=== PATIENT | male | born 1965 | race African-American/Black ===

== ENCOUNTER 2023-03-24 15:12 | Inpatient (IN) | payer MEDICARE, MEDICAID ==
[~2023-03-24] VITALS: Ht 171.4 cm; Wt 65.5 kg
[~2023-03-24 15:12] MED LIST: CARV6.253 PO; LISI10TA27 PO; METO-292 PO; NITR0.4T SL; rocuronium 10mg/ml inj IV ONE
[2023-03-24 15:32] LABS: BASOPHILS % (AUTO) 0.7 % (0-1); EOSINOPHILS % (AUTO) 0.3 % (0-6); HEMATOCRIT 32.5 % (42.0-52.0); HEMOGLOBIN 10.3 g/dl (14.0-17.9); LYMPHOCYTES # (AUTO) 0.8 X10'3 (1.1-4.8); LYMPHOCYTES % (AUTO) 14.1 % (21-51); MEAN CORPUSCULAR HEMOGLOBIN 25.8 PG (27.0-31.0); MEAN CORPUSCULAR HGB CONC 31.6 g/dL (33.0-36.5); MEAN CORPUSCULAR VOLUME 81.8 FL (78-98); MEAN PLATELET VOLUME 8.5 FL (7.4-10.4); MONOCYTES # (AUTO) 0.4 X10'3 (0-0.9); MONOCYTES % (AUTO) 6.6 % (2-12); NEUTROPHILS # (AUTO) 4.5 X10'3 (1.8-7.7); NEUTROPHILS % (AUTO) 78.3 % (42-75); PLATELET COUNT 232 X10'3 (140-440); RED BLOOD COUNT 3.98 X10'6 (4.70-6.10); RED CELL DISTRIBUTION WIDTH 25.7 % (11.5-14.5); WHITE BLOOD COUNT 5.8 X10'3 (4.5-11.0)
[2023-03-24 15:48] LABS: ALANINE AMINOTRANSFERASE 40 U/L (12-78); ALBUMIN 2.7 G/DL (3.4-5.0); ALBUMIN/GLOBULIN RATIO 0.6 (1.1-1.5); ALKALINE PHOSPHATASE 84 IU/L (46-116); ANION GAP 10 (8-16); ASPARTATE AMINO TRANSFERASE 27 U/L (10-37); BILIRUBIN,TOTAL 1.7 MG/DL (0.1-1.0); BLOOD UREA NITROGEN 46 MG/DL (7-18); BUN/CREATININE RATIO 19.5 (10.0-20.0); CALCIUM 9.2 MG/DL (8.5-10.1); CHLORIDE 96 MMOL/L (99-107); CREATININE 2.36 MG/DL (0.60-1.10); GLUCOSE 353 MG/DL (70-104); POTASSIUM 5.7 MMOL/L (3.5-5.1); SODIUM 128 MMOL/L (135-145); TOTAL PROTEIN 7.6 G/DL (6.4-8.2); eCRCL 35 ML/MIN; eGFR 35 ML/MIN
[2023-03-24 15:55] LABS: PRO BRAIN NATRIURETIC PEPTIDE 21013 PG/ML (0-125)
[2023-03-24 16:23] LABS: ANISOCYTOSIS 3+; PLATELET ESTIMATE NORMAL
[2023-03-24 16:24] LABS: BURR CELLS FEW; HYPOCHROMASIA 1+; SCHISTOCYTES FEW
[2023-03-24 16:25] LABS: POLYCHROMASIA FEW
[2023-03-24] MEDS ORDERED: CefTRIAXone 2gm/D5W 50ml BAG 50 ML IV ONE (17:45)
[2023-03-24] MEDS ORDERED: sodium polystyrene sulfonate 15gm/60ml oral suspension PO ONE (18:10)
[2023-03-24] MEDS: furosemide 10 MG/1 ML 10ml inj IV ONE ×2 (18:26→18:47)
[2023-03-24] MEDS ORDERED: magnesium hydroxide 30ml (MOM) UD suspension PO PRN (19:05)
[2023-03-24] MEDS ORDERED: magnesium Cl slow-release 64mg tablet PO PRN (19:05)
[2023-03-24] MEDS ORDERED: mag hydrox/Alum hydrox/simeth 30ml oral suspension PO PRN (19:05)
[2023-03-24] MEDS ORDERED: PERFLUTREN PROTEIN-A MICROSPHR (Optison) 0.22 MG/ML 3ML VIAL IV ONE (19:05)
[2023-03-24] MEDS ORDERED: magnesium 4gm in 100ml NS 100 ML IV PRN (19:05)
[2023-03-24] MEDS ORDERED: magnesium 2GM in 50ml NS 50 ML IV PRN (19:05)
[2023-03-24] MEDS ORDERED: dextrose 50%-water 50ml dispensing syringe IV PRN ×2 (19:15)
[2023-03-24] MEDS ORDERED: DEXTROSE 15 GM of carb/4 tabs (each vial/BOTTLE has 4 tablets) PO PRN ×2 (19:15)
[2023-03-24] MEDS ORDERED: glucagon, human recombinant 1mg kit SUBCUT PRN (19:15)
[2023-03-24] MEDS ORDERED: MESSAGE TO PHARMACY PO ONE (19:15)
[2023-03-24] MEDS ORDERED: colchicine 0.6mg tablet PO ONE (19:15)
[2023-03-24 19:30] LABS: PHOSPHORUS 4.7 MG/DL (2.3-4.5)
[2023-03-24 19:32] LABS: HEMOGLOBIN A1C 8.6 % (4.5-6.2)
[2023-03-24] MEDS: furosemide 20 MG/2 ML vial IV SCH (20:00)
[2023-03-24] MEDS: K and/or MAG REPLACEMENT MC SCH (20:00)
[2023-03-24] MEDS: carvedilol 6.25mg tablet PO SCH (20:00)
[2023-03-24 20:59] LABS: BILIRUBIN,URINE NEGATIVE (Neg); CLARITY,URINE CLEAR (Clear); COLOR,URINE YELLOW (Yellow); GLUCOSE, URINE NEGATIVE (Neg); KETONES,URINE NEGATIVE (Neg); LEUKOCYTE ESTERASE ,URINE NEGATIVE (Neg); NITRITES, URINE NEGATIVE (Neg); OCCULT BLOOD,URINE NEGATIVE (Neg); PH,URINE 5.5 (4.8-8.0); PROTEIN,URINE TRACE mg/dl (Neg)
[2023-03-24 21:01] LABS: UA COLLECTION TYPE URINAL
[2023-03-24 21:05] LABS: BACTERIA,URINE NONE SEEN /HPF (Neg); HYALINE CASTS 0-3 /LPF (NEGATIVE); RBC,URINE 0-2 /HPF (0-2); SQUAMOUS EPITHELIAL CELL,UR NONE SEEN /LPF (FEW); STARCH,URINE FEW /HPF (NEGATIVE); WBC,URINE 0-4 /HPF (0-4)
--- NOTE | 2023-03-24 21:17 | NUR ---
Pt arrived from ER via gurney. Able to ambulate to bed, however gait unsteady.
[2023-03-24 21:21] VITALS: BP 103/6; PULSE 96; RESP 18; TEMP 97.5; O2SAT 98
[2023-03-24 22:21] VITALS: BP 96/56; PULSE 98; O2SAT 100
[2023-03-24] MEDS: docusate sod 100mg capsule PO SCH (22:27)
[2023-03-24] MEDS: heparin, porcine 5000 units/ml vial SQ SCH (22:28)
[2023-03-24] MEDS: colchicine 0.6mg tablet PO SCH (23:24)
[2023-03-24 23:26] VITALS: RESP 18; O2SAT 100
[2023-03-25] VITALS (7 sets, daily range): BP systolic 92–107; BP diastolic 71–81; PULSE 64–97; RESP 14–19; TEMP 97.4–98.6; O2SAT 95–100
--- NOTE | 2023-03-25 02:00 | NUR ---
Pt c/o SOB. O2 sats 100% on 2LNC, lungs clear, BP WNL. Advised who ordered 0.5mg Ativan PO X1.
[2023-03-25] MEDS ORDERED: LORazepam 1 MG tablet PO ONE (02:05)
[2023-03-25] MEDS ORDERED: LORazepam 0.5 MG tablet PO ONE (02:35)
--- NOTE | 2023-03-25 06:26 | NUR ---
Problems reprioritized. Patient report given, questions answered & plan of care reviewed with Danelle.
[2023-03-25 07:21] LABS: BASOPHILS # (AUTO) 0.1 X10'3 (0-0.2); BASOPHILS % (AUTO) 0.8 % (0-1); MEAN PLATELET VOLUME 8.9 FL (7.4-10.4); MONOCYTES # (AUTO) 0.4 X10'3 (0-0.9)
[2023-03-25 07:23] LABS: EOSINOPHILS % (AUTO) 0.5 % (0-6); LYMPHOCYTES % (AUTO) 14.4 % (21-51); MEAN CORPUSCULAR HEMOGLOBIN 25.9 PG (27.0-31.0); MEAN CORPUSCULAR HGB CONC 32.1 g/dL (33.0-36.5); MEAN CORPUSCULAR VOLUME 80.6 FL (78-98); MONOCYTES % (AUTO) 6.3 % (2-12); NEUTROPHILS # (AUTO) 5.4 X10'3 (1.8-7.7); PLATELET COUNT 229 X10'3 (140-440); RED BLOOD COUNT 3.85 X10'6 (4.70-6.10); RED CELL DISTRIBUTION WIDTH 25.8 % (11.5-14.5); WHITE BLOOD COUNT 6.9 X10'3 (4.5-11.0)
[2023-03-25] MEDS: K and/or MAG REPLACEMENT MC SCH ×2 (08:00→20:00)
[2023-03-25] MEDS: docusate sod 100mg capsule PO SCH ×2 (08:05→20:42)
[2023-03-25] MEDS: heparin, porcine 5000 units/ml vial SQ SCH ×2 (08:05→20:42)
[2023-03-25] MEDS: carvedilol 6.25mg tablet PO SCH ×2 (08:05→20:00)
[2023-03-25] MEDS: furosemide 20 MG/2 ML vial IV SCH ×2 (08:06→20:01)
[2023-03-25 09:18] LABS: ALANINE AMINOTRANSFERASE 38 U/L (12-78); ALBUMIN 2.7 G/DL (3.4-5.0); ALBUMIN/GLOBULIN RATIO 0.6 (1.1-1.5); ALKALINE PHOSPHATASE 81 IU/L (46-116); ANION GAP 12 (8-16); ASPARTATE AMINO TRANSFERASE 29 U/L (10-37); BILIRUBIN,TOTAL 1.3 MG/DL (0.1-1.0); BLOOD UREA NITROGEN 51 MG/DL (7-18); BUN/CREATININE RATIO 23.1 (10.0-20.0); CALCIUM 9.1 MG/DL (8.5-10.1); CHLORIDE 96 MMOL/L (99-107); CREATININE 2.21 MG/DL (0.60-1.10); GLUCOSE 250 MG/DL (70-104); POTASSIUM 5.2 MMOL/L (3.5-5.1); SODIUM 130 MMOL/L (135-145); TOTAL CARBON DIOXIDE 22.2 MMOL/L (24-32); TOTAL PROTEIN 7.3 G/DL (6.4-8.2); URIC ACID 12.1 MG/DL (3.5-7.2); eCRCL 37 ML/MIN; eGFR 37 ML/MIN
[2023-03-25] MEDS ORDERED: OLAN5TAB75 PO (12:39)
[2023-03-25] MEDS ORDERED: FURO40TA4 PO (12:39)
[2023-03-25] MEDS ORDERED: SIMV10TA98 PO (12:39)
[2023-03-25] MEDS ORDERED: SPIR25TA5 PO (12:39)
[2023-03-25] MEDS ORDERED: POTA-207 PO (12:39)
[2023-03-25] MEDS ORDERED: BUSP10TA3 PO (12:39)
[2023-03-25] MEDS ORDERED: GLYB5TAB7 PO (12:39)
[2023-03-25] MEDS ORDERED: CARV-50 PO (12:39)
[2023-03-25] MEDS ORDERED: ASPI-1397 PO (12:39)
[2023-03-25] MEDS ORDERED: COLC0.6T72 PO (12:39)
[2023-03-25] MEDS: colchicine 0.6mg tablet PO SCH ×2 (13:16→20:42)
--- NOTE | 2023-03-25 13:28 | NUR ---
Diabetes and malnutrition consult: Pt presents with an A1c of 8.6% and BG of 353 on admit per EMR. Pt seen at bedside and provided verbal/written diabetes nutrition education. Pt interesting in a brief discussion and left written materials at bedside for him "to read later when hes feeling better". Pt states he checks his BG sometimes which run at 110-115mg/dl and tries to see his primary doctor once a month. Per RN malnutrition screen pt states 2-13 pound weight loss and decreased in appetite/intake. When interviewed by RN pt states he lost 20 pounds in the last few months, noted discrepancy in reporting. Pt states UBW is 180 pounds and last weighed that "a long while ago" though fluctuates often and last saw 159 pounds at the doctors office yesterday. Pending scaled wt this admit with reported non scaled wt of 72.27kg (160 pounds). Pt appears thin though states it's "kind of" typically for him. Pt is currently on a carbohydrate controlled diet and noticed opened take out ukrainian food at bedside during visit. Additionally pt does not have edema nor weakness. Pt does not meet a minimum of malnutrition criteria at this time. Will continue to monitor for signs of malnutrition. Addendum: 03/25/23 at [address] Amended: Links added.
[2023-03-25] MEDS: insulin Lispro (HumaLOG) vial - multi-dose SQ SCH (19:31)
[2023-03-25] MEDS: carVEDilol 12.5mg tablet PO SCH (20:00)
[2023-03-25] MEDS: atorvastatin 10mg tablet PO SCH (20:43)
[2023-03-25] MEDS: busPIRone 5mg tablet PO SCH (20:43)
[2023-03-25] MEDS: OLANZAPINE 5 MG TABLET PO SCH (20:43)
[2023-03-26] VITALS (8 sets, daily range): BP systolic 92–107; BP diastolic 62–78; PULSE 88–104; RESP 12–16; TEMP 97.4–98.2; O2SAT 96–100
[2023-03-26 06:45] LABS: BASOPHILS % (AUTO) 0.5 % (0-1); EOSINOPHILS % (AUTO) 0.3 % (0-6); HEMATOCRIT 32.2 % (42.0-52.0); HEMOGLOBIN 10.2 g/dl (14.0-17.9); LYMPHOCYTES # (AUTO) 0.7 X10'3 (1.1-4.8); LYMPHOCYTES % (AUTO) 8.5 % (21-51); MEAN CORPUSCULAR HEMOGLOBIN 25.3 PG (27.0-31.0); MEAN CORPUSCULAR HGB CONC 31.6 g/dL (33.0-36.5); MEAN CORPUSCULAR VOLUME 80.2 FL (78-98); MEAN PLATELET VOLUME 8.7 FL (7.4-10.4); MONOCYTES # (AUTO) 0.4 X10'3 (0-0.9); NEUTROPHILS # (AUTO) 7.5 X10'3 (1.8-7.7); NEUTROPHILS % (AUTO) 85.7 % (42-75); PLATELET COUNT 219 X10'3 (140-440); RED BLOOD COUNT 4.02 X10'6 (4.70-6.10); WHITE BLOOD COUNT 8.8 X10'3 (4.5-11.0)
[2023-03-26 07:00] LABS: ALANINE AMINOTRANSFERASE 42 U/L (12-78); ALBUMIN 2.7 G/DL (3.4-5.0); ALBUMIN/GLOBULIN RATIO 0.6 (1.1-1.5); ALKALINE PHOSPHATASE 79 IU/L (46-116); ANION GAP 12 (8-16); ASPARTATE AMINO TRANSFERASE 25 U/L (10-37); BILIRUBIN,TOTAL 1.7 MG/DL (0.1-1.0); BLOOD UREA NITROGEN 56 MG/DL (7-18); BUN/CREATININE RATIO 27.7 (10.0-20.0); CALCIUM 9.3 MG/DL (8.5-10.1); CHLORIDE 96 MMOL/L (99-107); CREATININE 2.02 MG/DL (0.60-1.10); GLUCOSE 94 MG/DL (70-104); MAGNESIUM 1.8 MG/DL (1.5-2.4); POTASSIUM 4.4 MMOL/L (3.5-5.1); SODIUM 131 MMOL/L (135-145); TOTAL CARBON DIOXIDE 23.2 MMOL/L (24-32); TOTAL PROTEIN 7.1 G/DL (6.4-8.2); eCRCL 41 ML/MIN; eGFR 42 ML/MIN
[2023-03-26] MEDS: K and/or MAG REPLACEMENT MC SCH ×2 (07:32→19:43)
[2023-03-26 07:38] LABS: PLATELET ESTIMATE NORMAL
[2023-03-26 07:39] LABS: ANISOCYTOSIS 3+; MICROCYTOSIS 1+; POIKILOCYTOSIS FEW; TARGET CELLS FEW
[2023-03-26] MEDS: docusate sod 100mg capsule PO SCH ×2 (07:40→19:53)
[2023-03-26] MEDS: carVEDilol 12.5mg tablet PO SCH ×2 (07:41→19:56)
[2023-03-26] MEDS: aspirin 81mg, enteric-coated 1 TAB TABLET.DR PO SCH (07:42)
[2023-03-26] MEDS: busPIRone 5mg tablet PO SCH ×2 (07:42→19:56)
[2023-03-26] MEDS: colchicine 0.6mg tablet PO SCH ×2 (07:43→19:57)
[2023-03-26] MEDS: heparin, porcine 5000 units/ml vial SQ SCH ×2 (07:43→19:58)
[2023-03-26] MEDS: furosemide 20 MG/2 ML vial IV SCH ×2 (07:44→19:57)
[2023-03-26] MEDS: carvedilol 6.25mg tablet PO SCH (08:00)
--- NOTE | 2023-03-26 08:16 | NUR ---
pt blood glucose 100 and he did not eat much. I will recheck at lunch and not cover him with humalog at this time.
[2023-03-26] MEDS: OLANZAPINE 5 MG TABLET PO SCH (19:56)
[2023-03-26] MEDS: atorvastatin 10mg tablet PO SCH (19:56)
[2023-03-27] VITALS (8 sets, daily range): BP systolic 91–98; BP diastolic 68–74; PULSE 62–100; RESP 12–24; TEMP 97.3–98.9; O2SAT 97–100
--- NOTE | 2023-03-27 06:40 | NUR ---
rEPORT GIVEN TO JAIR BERMUDEZ. PT RESTING COMFORTABLY IN BED AT THIS TIME.
--- NOTE | 2023-03-27 07:06 | NUR ---
Patient in room PCU 3012. I have received report from Shirin WOLFE and had the opportunity to ask questions and assume patient care.
[2023-03-27 07:28] LABS: BASOPHILS % (AUTO) 0.6 % (0-1); EOSINOPHILS # (AUTO) 0.1 X10'3 (0-0.9); HEMATOCRIT 32.8 % (42.0-52.0); HEMOGLOBIN 10.4 g/dl (14.0-17.9); LYMPHOCYTES # (AUTO) 0.6 X10'3 (1.1-4.8); LYMPHOCYTES % (AUTO) 8.5 % (21-51); MEAN CORPUSCULAR HEMOGLOBIN 25.6 PG (27.0-31.0); MEAN CORPUSCULAR HGB CONC 31.7 g/dL (33.0-36.5); MEAN CORPUSCULAR VOLUME 80.7 FL (78-98); MEAN PLATELET VOLUME 8.9 FL (7.4-10.4); MONOCYTES # (AUTO) 0.4 X10'3 (0-0.9); MONOCYTES % (AUTO) 4.9 % (2-12); NEUTROPHILS # (AUTO) 6.2 X10'3 (1.8-7.7); PLATELET COUNT 189 X10'3 (140-440); RED BLOOD COUNT 4.06 X10'6 (4.70-6.10); RED CELL DISTRIBUTION WIDTH 25.7 % (11.5-14.5); WHITE BLOOD COUNT 7.3 X10'3 (4.5-11.0)
[2023-03-27] MEDS: aspirin 81mg, enteric-coated 1 TAB TABLET.DR PO SCH (07:52)
[2023-03-27] MEDS: carVEDilol 12.5mg tablet PO SCH ×2 (07:52→20:00)
[2023-03-27] MEDS: busPIRone 5mg tablet PO SCH ×2 (07:53→21:38)
[2023-03-27] MEDS: heparin, porcine 5000 units/ml vial SQ SCH ×2 (07:54→21:37)
[2023-03-27 07:57] LABS: ALANINE AMINOTRANSFERASE 39 U/L (12-78); ALBUMIN 2.7 G/DL (3.4-5.0); ALBUMIN/GLOBULIN RATIO 0.6 (1.1-1.5); ALKALINE PHOSPHATASE 90 IU/L (46-116); ANION GAP 10 (8-16); ASPARTATE AMINO TRANSFERASE 28 U/L (10-37); BILIRUBIN,TOTAL 1.6 MG/DL (0.1-1.0); BLOOD UREA NITROGEN 54 MG/DL (7-18); BUN/CREATININE RATIO 27.6 (10.0-20.0); CALCIUM 9.2 MG/DL (8.5-10.1); CHLORIDE 96 MMOL/L (99-107); CREATININE 1.96 MG/DL (0.60-1.10); GLUCOSE 190 MG/DL (70-104); MAGNESIUM 1.8 MG/DL (1.5-2.4); PHOSPHORUS 3.9 MG/DL (2.3-4.5); POTASSIUM 3.9 MMOL/L (3.5-5.1); PRO BRAIN NATRIURETIC PEPTIDE 15003 PG/ML (0-125); SODIUM 131 MMOL/L (135-145); TOTAL CARBON DIOXIDE 25.3 MMOL/L (24-32); TOTAL PROTEIN 7.2 G/DL (6.4-8.2); eCRCL 42 ML/MIN; eGFR 43 ML/MIN
[2023-03-27] MEDS: K and/or MAG REPLACEMENT MC SCH ×2 (08:00→20:00)
[2023-03-27] MEDS: docusate sod 100mg capsule PO SCH ×2 (08:00→21:38)
[2023-03-27] MEDS: furosemide 20 MG/2 ML vial IV SCH ×2 (08:00→20:00)
[2023-03-27] MEDS: colchicine 0.6mg tablet PO SCH ×2 (08:12→21:37)
[2023-03-27] MEDS: insulin Lispro (HumaLOG) vial - multi-dose SQ SCH (10:04)
--- NOTE | 2023-03-27 12:42 | NUR ---
AGRR WITH POWERHOUSE TENDER AM ASSESSMENT
--- NOTE | 2023-03-27 17:55 | NUR ---
JEWELER APPRENTICE [place] documentation: I have reviewed and agree with all interventions, assessments performed and documented by Jonas BERMUDEZ. JEWELER APPRENTICE [place] Medication Administration: For this medication-pass time frame, all medication were reviewed, dispensed, administered and documented per hospital policy by Jonas BERMUDEZ.
--- NOTE | 2023-03-27 18:18 | NUR ---
Problems reprioritized. Patient report giveN TO Fay ENGINEER AUTOMATED EQUIPMENT questions answered & plan of care reviewed with .
[2023-03-27] MEDS: atorvastatin 10mg tablet PO SCH (21:38)
[2023-03-27] MEDS: OLANZAPINE 5 MG TABLET PO SCH (21:38)
[2023-03-28] VITALS (8 sets, daily range): BP systolic 88–104; BP diastolic 60–75; PULSE 90–105; RESP 18–28; TEMP 97.4–98.5; O2SAT 92–100
--- NOTE | 2023-03-28 00:40 | NUR ---
notified pt has c/o SOB, possibly r/t anxiety, O2 levels 100% on 2L. gave new order to start - Aitvan 0.5mg q 6hrs PRN for anxiety. Orders updated.
[2023-03-28 06:10] LABS: BASOPHILS % (AUTO) 0.4 % (0-1); EOSINOPHILS # (AUTO) 0.1 X10'3 (0-0.9); EOSINOPHILS % (AUTO) 0.8 % (0-6); HEMATOCRIT 33.3 % (42.0-52.0); HEMOGLOBIN 10.5 g/dl (14.0-17.9); LYMPHOCYTES # (AUTO) 0.7 X10'3 (1.1-4.8); LYMPHOCYTES % (AUTO) 10.4 % (21-51); MEAN CORPUSCULAR HEMOGLOBIN 25.4 PG (27.0-31.0); MEAN CORPUSCULAR HGB CONC 31.4 g/dL (33.0-36.5); MEAN CORPUSCULAR VOLUME 80.7 FL (78-98); MEAN PLATELET VOLUME 8.8 FL (7.4-10.4); MONOCYTES # (AUTO) 0.4 X10'3 (0-0.9); MONOCYTES % (AUTO) 6.1 % (2-12); NEUTROPHILS # (AUTO) 5.9 X10'3 (1.8-7.7); NEUTROPHILS % (AUTO) 82.3 % (42-75); PLATELET COUNT 185 X10'3 (140-440); RED BLOOD COUNT 4.13 X10'6 (4.70-6.10); RED CELL DISTRIBUTION WIDTH 25.3 % (11.5-14.5); WHITE BLOOD COUNT 7.2 X10'3 (4.5-11.0)
--- NOTE | 2023-03-28 06:25 | NUR ---
Patient in room PCU 3012. I have received report from Fay and had the opportunity to ask questions and assume patient care.
[2023-03-28 06:29] LABS: ALANINE AMINOTRANSFERASE 31 U/L (12-78); ALBUMIN 2.7 G/DL (3.4-5.0); ALBUMIN/GLOBULIN RATIO 0.6 (1.1-1.5); ALKALINE PHOSPHATASE 84 IU/L (46-116); ANION GAP 15 (8-16); ASPARTATE AMINO TRANSFERASE 33 U/L (10-37); BILIRUBIN,TOTAL 1.9 MG/DL (0.1-1.0); BLOOD UREA NITROGEN 58 MG/DL (7-18); BUN/CREATININE RATIO 31.7 (10.0-20.0); CALCIUM 9.2 MG/DL (8.5-10.1); CHLORIDE 97 MMOL/L (99-107); CREATININE 1.83 MG/DL (0.60-1.10); GLUCOSE 73 MG/DL (70-104); PHOSPHORUS 4.3 MG/DL (2.3-4.5); POTASSIUM 3.9 MMOL/L (3.5-5.1); PRO BRAIN NATRIURETIC PEPTIDE 16564 PG/ML (0-125); SODIUM 133 MMOL/L (135-145); TOTAL CARBON DIOXIDE 21.1 MMOL/L (24-32); TOTAL PROTEIN 7.1 G/DL (6.4-8.2); eCRCL 43 ML/MIN; eGFR 47 ML/MIN
[2023-03-28] MEDS: furosemide 20 MG/2 ML vial IV SCH ×2 (07:13→22:01)
[2023-03-28] MEDS: carVEDilol 12.5mg tablet PO SCH ×2 (08:00→20:14)
[2023-03-28] MEDS: K and/or MAG REPLACEMENT MC SCH ×2 (08:00→20:00)
[2023-03-28] MEDS: docusate sod 100mg capsule PO SCH ×3 (08:00→20:13)
[2023-03-28 08:06] LABS: ANISOCYTOSIS 3+; LARGE PLATELETS FEW; PLATELET ESTIMATE NORMAL
[2023-03-28 08:07] LABS: HYPOCHROMASIA 1+
[2023-03-28] MEDS: busPIRone 5mg tablet PO SCH ×2 (09:52→20:13)
[2023-03-28] MEDS: aspirin 81mg, enteric-coated 1 TAB TABLET.DR PO SCH (09:52)
[2023-03-28] MEDS: heparin, porcine 5000 units/ml vial SQ SCH ×2 (09:53→20:14)
[2023-03-28] MEDS: colchicine 0.6mg tablet PO SCH ×2 (10:41→20:14)
--- NOTE | 2023-03-28 18:39 | NUR ---
Problems reprioritized. Patient report given, questions answered & plan of care reviewed with Sky.
[2023-03-28] MEDS: atorvastatin 10mg tablet PO SCH (20:13)
[2023-03-28] MEDS: OLANZAPINE 5 MG TABLET PO SCH (20:14)
[2023-03-28] MEDS: LORazepam 0.5 MG tablet PO PRN (21:56)
[2023-03-29] VITALS (8 sets, daily range): BP systolic 82–101; BP diastolic 58–73; PULSE 97–108; RESP 14–20; TEMP 97.3–97.9; O2SAT 90–100
[2023-03-29 06:21] LABS: BASOPHILS % (AUTO) 0.4 % (0-1); EOSINOPHILS % (AUTO) 0.4 % (0-6); HEMATOCRIT 31.5 % (42.0-52.0); HEMOGLOBIN 10.1 g/dl (14.0-17.9); LYMPHOCYTES # (AUTO) 0.5 X10'3 (1.1-4.8); LYMPHOCYTES % (AUTO) 6.8 % (21-51); MEAN CORPUSCULAR HEMOGLOBIN 25.8 PG (27.0-31.0); MEAN CORPUSCULAR HGB CONC 32.1 g/dL (33.0-36.5); MEAN CORPUSCULAR VOLUME 80.4 FL (78-98); MEAN PLATELET VOLUME 9.3 FL (7.4-10.4); MONOCYTES # (AUTO) 0.4 X10'3 (0-0.9); MONOCYTES % (AUTO) 6.3 % (2-12); NEUTROPHILS % (AUTO) 86.1 % (42-75); PLATELET COUNT 177 X10'3 (140-440); RED BLOOD COUNT 3.91 X10'6 (4.70-6.10); RED CELL DISTRIBUTION WIDTH 25.6 % (11.5-14.5)
--- NOTE | 2023-03-29 06:45 | NUR ---
Patient in room PCU 3012. I have received report from Sky and had the opportunity to ask questions and assume patient care.
[2023-03-29 06:55] LABS: ALANINE AMINOTRANSFERASE 43 U/L (12-78); ALBUMIN 2.6 G/DL (3.4-5.0); ALBUMIN/GLOBULIN RATIO 0.6 (1.1-1.5); ALKALINE PHOSPHATASE 91 IU/L (46-116); ANION GAP 10 (8-16); ASPARTATE AMINO TRANSFERASE 33 U/L (10-37); BILIRUBIN,TOTAL 2.1 MG/DL (0.1-1.0); BLOOD UREA NITROGEN 55 MG/DL (7-18); BUN/CREATININE RATIO 28.4 (10.0-20.0); CALCIUM 9.1 MG/DL (8.5-10.1); CHLORIDE 95 MMOL/L (99-107); CREATININE 1.94 MG/DL (0.60-1.10); GLUCOSE 208 MG/DL (70-104); PHOSPHORUS 4.2 MG/DL (2.3-4.5); PRO BRAIN NATRIURETIC PEPTIDE 21586 PG/ML (0-125); SODIUM 130 MMOL/L (135-145); TOTAL CARBON DIOXIDE 24.7 MMOL/L (24-32); TOTAL PROTEIN 7.1 G/DL (6.4-8.2); eCRCL 40 ML/MIN; eGFR 44 ML/MIN
[2023-03-29] MEDS: furosemide 20 MG/2 ML vial IV SCH ×2 (07:25→21:02)
[2023-03-29] MEDS: colchicine 0.6mg tablet PO SCH ×2 (07:44→20:50)
[2023-03-29] MEDS: heparin, porcine 5000 units/ml vial SQ SCH ×2 (07:45→20:51)
[2023-03-29] MEDS: aspirin 81mg, enteric-coated 1 TAB TABLET.DR PO SCH (07:46)
[2023-03-29] MEDS: busPIRone 5mg tablet PO SCH ×2 (07:46→20:49)
[2023-03-29] MEDS: carVEDilol 12.5mg tablet PO SCH ×2 (07:46→19:33)
[2023-03-29] MEDS: docusate sod 100mg capsule PO SCH ×2 (07:47→19:33)
[2023-03-29] MEDS: K and/or MAG REPLACEMENT MC SCH ×2 (08:00→20:00)
[2023-03-29] MEDS: insulin Lispro (HumaLOG) vial - multi-dose SQ SCH ×3 (10:36→19:28)
--- NOTE | 2023-03-29 13:35 | NUR ---
[place] [facility] [place] a Life Vest for pt. I called case management and talked to Nidhi and she said she would take care of the ordering and let me know.
[2023-03-29] MEDS: LORazepam 0.5 MG tablet PO PRN ×2 (13:47→22:17)
[2023-03-29 14:45] LABS: NUCLEATED RED BLOOD CELLS 4 /100WBC (0-0); TOTAL CELLS COUNTED 100
[2023-03-29 14:46] LABS: ANISOCYTOSIS 3+; HYPERSEGMENTED NEUTROPHILS FEW; HYPOCHROMASIA 1+; LARGE PLATELETS FEW; PLATELET ESTIMATE NORMAL
[2023-03-29 14:47] LABS: ELLIPTOCYTES FEW; POLYCHROMASIA 1+
[2023-03-29 14:49] LABS: MICROCYTOSIS FEW; POIKILOCYTOSIS FEW
[2023-03-29 14:57] LABS: TARGET CELLS FEW
--- NOTE | 2023-03-29 15:50 | NUR ---
Sent to Dr Conley -PAGER ID: [phone] MESSAGE: [phone] Rylee Kyle - Cont to c/o SOB. His O2 is 100% and he has had a 0.5mg ativan. Please advise. Jeannie [facility] [phone]
--- NOTE | 2023-03-29 16:07 | NUR ---
Initial: Pt admit DX CHF exacerbation w/ hypoxemia, DM A1C 8.6%, HTN, acute on chronic renal failure slowly improving, hyponatremia, hyperkalemia, and anemia per EMR. Noted pt Glu 189-212mg/dl past day receiving humalog w/ meals but no basal coverage; RD d/w PRODUCTION MACHINE OPERATOR about basal coverage per physician discretion. PO ~26% avg initial carb controlled meals not meeting estimated needs. Per PRODUCTION MACHINE OPERATOR, pt continues to complain of SOB despite 100% O2 sats likely related to anxiety. Pt seen by RD at bedside; pt confirms feeling SOB causing poor meal acceptance is agreeable to strawberry smoothie TIDWM and strawberry Ensure Plus High Protein TIDWM to assist meeting needs. Dietary notified of rochelle and MD notified of ONS recs. LBM 03/28 receiving routine colace though refused past 2 days per EMR. Will continue to follow. Rec: 1. continue carb controlled diet; if poor PO persists liberalize to regular diet 2. strawberry smoothie TIDWM per pt preferences 3. strawberry Ensure Plus High Protein TIDWM; pending physician verification in EMR 4. routine bowel care 5. daily wt Addendum: 03/29/23 at [address] Amended: Links added.
[2023-03-29] MEDS ORDERED: hydrOXYzine 10 MG tablet PO PRN (16:55)
[2023-03-29] MEDS: LACTOSE-REDUCED FOOD 237ML LIQUID PO SCH (18:00)
[2023-03-29] MEDS: atorvastatin 10mg tablet PO SCH (20:49)
[2023-03-29] MEDS: OLANZAPINE 5 MG TABLET PO SCH (20:50)
[2023-03-30] VITALS (9 sets, daily range): BP systolic 66–106; BP diastolic 64–81; PULSE 95–108; RESP 14–26; TEMP 97.1–98; O2SAT 98–100
--- NOTE | 2023-03-30 06:26 | NUR ---
Problems reprioritized. Patient report given, questions answered & plan of care reviewed with Niurka.
--- NOTE | 2023-03-30 07:30 | NUR ---
Patient in room [facility] 3012. I have received report from YANETH TAYLOR, and had the opportunity to ask questions and assume patient care. Addendum: 03/30/23 at 6233 by Niurka Khalil RN YANETH TAYLOR RECEIVED REPORT FROM LARA RILEY.
[2023-03-30] MEDS: carVEDilol 12.5mg tablet PO SCH (08:00)
[2023-03-30] MEDS: docusate sod 100mg capsule PO SCH ×2 (08:00→20:00)
[2023-03-30] MEDS: LACTOSE-REDUCED FOOD 237ML LIQUID PO SCH ×3 (08:00→18:00)
[2023-03-30] MEDS: furosemide 20 MG/2 ML vial IV SCH (08:00)
[2023-03-30] MEDS: K and/or MAG REPLACEMENT MC SCH ×2 (08:00→20:00)
[2023-03-30] MEDS: colchicine 0.6mg tablet PO SCH ×2 (08:10→20:02)
[2023-03-30] MEDS: aspirin 81mg, enteric-coated 1 TAB TABLET.DR PO SCH (08:10)
[2023-03-30] MEDS: busPIRone 5mg tablet PO SCH ×2 (08:10→20:02)
[2023-03-30] MEDS: heparin, porcine 5000 units/ml vial SQ SCH ×2 (08:12→20:03)
[2023-03-30 09:21] LABS: ALANINE AMINOTRANSFERASE 56 U/L (12-78); ALBUMIN 2.7 G/DL (3.4-5.0); ALBUMIN/GLOBULIN RATIO 0.6 (1.1-1.5); ALKALINE PHOSPHATASE 87 IU/L (46-116); ANION GAP 12 (8-16); ASPARTATE AMINO TRANSFERASE 68 U/L (10-37); BILIRUBIN,TOTAL 2.9 MG/DL (0.1-1.0); BLOOD UREA NITROGEN 77 MG/DL (7-18); CALCIUM 9.4 MG/DL (8.5-10.1); CHLORIDE 94 MMOL/L (99-107); CREATININE 2.57 MG/DL (0.60-1.10); GLUCOSE 115 MG/DL (70-104); POTASSIUM 4.6 MMOL/L (3.5-5.1); SODIUM 128 MMOL/L (135-145); TOTAL CARBON DIOXIDE 22.2 MMOL/L (24-32); TOTAL PROTEIN 7.4 G/DL (6.4-8.2); eCRCL 29 ML/MIN; eGFR 31 ML/MIN
[2023-03-30 09:21] LABS: BASOPHILS % (AUTO) 0.6 % (0-1); EOSINOPHILS % (AUTO) 0.6 % (0-6); HEMATOCRIT 32.9 % (42.0-52.0); HEMOGLOBIN 10.3 g/dl (14.0-17.9); LYMPHOCYTES # (AUTO) 0.6 X10'3 (1.1-4.8); LYMPHOCYTES % (AUTO) 8.5 % (21-51); MEAN CORPUSCULAR HEMOGLOBIN 25.6 PG (27.0-31.0); MEAN CORPUSCULAR HGB CONC 31.3 g/dL (33.0-36.5); MEAN CORPUSCULAR VOLUME 81.5 FL (78-98); MEAN PLATELET VOLUME 9.7 FL (7.4-10.4); MONOCYTES # (AUTO) 0.4 X10'3 (0-0.9); MONOCYTES % (AUTO) 5.4 % (2-12); NEUTROPHILS # (AUTO) 5.6 X10'3 (1.8-7.7); NEUTROPHILS % (AUTO) 84.9 % (42-75); PLATELET COUNT 169 X10'3 (140-440); RED BLOOD COUNT 4.03 X10'6 (4.70-6.10); WHITE BLOOD COUNT 6.6 X10'3 (4.5-11.0)
--- NOTE | 2023-03-30 12:19 | NUR ---
MORNING LASIX AND COREG HELD D/T LOW BP. PROVIDER NOTIFIED.
[2023-03-30 12:26] LABS: ANISOCYTOSIS 3+; HYPOCHROMASIA 1+; PLATELET ESTIMATE NORMAL; TOTAL CELLS COUNTED 100
[2023-03-30 12:28] LABS: BURR CELLS 1+; POLYCHROMASIA FEW; SCHISTOCYTES FEW
[2023-03-30 12:29] LABS: NUCLEATED RED BLOOD CELLS 2 /100WBC (0-0)
[2023-03-30 12:30] LABS: LARGE PLATELETS FEW
[2023-03-30] MEDS: ondansetron/PF 4mg/2ml inj IV PRN (18:01)
--- NOTE | 2023-03-30 18:32 | NUR ---
Problems reprioritized. Patient report given, questions answered & plan of care reviewed with YANETH FRANKEL.
[2023-03-30] MEDS ORDERED: carVEDilol 3.125mg tablet PO SCH (20:00)
[2023-03-30] MEDS ORDERED: furosemide 20 MG/2 ML vial IV SCH (20:00)
[2023-03-30] MEDS: atorvastatin 10mg tablet PO SCH (21:59)
[2023-03-30] MEDS: OLANZAPINE 5 MG TABLET PO SCH (21:59)
--- NOTE | 2023-03-30 23:14 | NUR ---
PAGER ID: [phone] MESSAGE: [phone] Rylee Kyle. Pt has had diarrhea during AM shift and 2x on PM shift. Sending stool sample to rule out C-Diff. Thank you! Rylee WLOFE [phone]
--- NOTE | 2023-03-30 23:25 | NUR ---
MD notified about pt diarrhea. MD gave order for Imodium 2mg PO Once for diarrhea. MD stated to continue to monitor pt and if diarrhea continues will order stool sample for rule out c-diff. Order readback and placed per
[2023-03-31] MEDS ORDERED: loperamide 2mg capsule PO ONE (00:20)
[2023-03-31 02:00] VITALS: BP 106/79; PULSE 101; RESP 20; TEMP 97; O2SAT 100
[2023-03-31 06:33] LABS: MEAN PLATELET VOLUME 9.2 FL (7.4-10.4); MONOCYTES # (AUTO) 0.2 X10'3 (0-0.9)
[2023-03-31 06:35] LABS: BASOPHILS % (AUTO) 0.6 % (0-1); EOSINOPHILS % (AUTO) 0 % (0-6); HEMATOCRIT 34.1 % (42.0-52.0); HEMOGLOBIN 10.8 g/dl (14.0-17.9); LYMPHOCYTES # (AUTO) 0.3 X10'3 (1.1-4.8); LYMPHOCYTES % (AUTO) 5.9 % (21-51); MEAN CORPUSCULAR HEMOGLOBIN 25.7 PG (27.0-31.0); MEAN CORPUSCULAR HGB CONC 31.7 g/dL (33.0-36.5); MEAN CORPUSCULAR VOLUME 81.1 FL (78-98); MONOCYTES % (AUTO) 4.8 % (2-12); NEUTROPHILS # (AUTO) 4.3 X10'3 (1.8-7.7); NEUTROPHILS % (AUTO) 88.7 % (42-75); PLATELET COUNT 153 X10'3 (140-440); RED BLOOD COUNT 4.21 X10'6 (4.70-6.10); RED CELL DISTRIBUTION WIDTH 26.1 % (11.5-14.5); WHITE BLOOD COUNT 4.8 X10'3 (4.5-11.0)
[2023-03-31 06:54] LABS: ALANINE AMINOTRANSFERASE 70 U/L (12-78); ALBUMIN 2.5 G/DL (3.4-5.0); ALBUMIN/GLOBULIN RATIO 0.5 (1.1-1.5); ALKALINE PHOSPHATASE 90 IU/L (46-116); ANION GAP 17 (8-16); ASPARTATE AMINO TRANSFERASE 78 U/L (10-37); BILIRUBIN,TOTAL 2.7 MG/DL (0.1-1.0); BLOOD UREA NITROGEN 90 MG/DL (7-18); BUN/CREATININE RATIO 34.6 (10.0-20.0); CALCIUM 8.7 MG/DL (8.5-10.1); CHLORIDE 93 MMOL/L (99-107); GLUCOSE 236 MG/DL (70-104); POTASSIUM 4.4 MMOL/L (3.5-5.1); SODIUM 129 MMOL/L (135-145); TOTAL CARBON DIOXIDE 19.2 MMOL/L (24-32); TOTAL PROTEIN 7.2 G/DL (6.4-8.2); eCRCL 30 ML/MIN; eGFR 31 ML/MIN
--- NOTE | 2023-03-31 06:56 | NUR ---
Problems reprioritized. Patient report given, questions answered & plan of care reviewed with Katheryn BERMUDEZ.
[2023-03-31 07:48] LABS: PRO BRAIN NATRIURETIC PEPTIDE > 30000 PG/ML (0-125)
[2023-03-31] MEDS: LACTOSE-REDUCED FOOD 237ML LIQUID PO SCH ×3 (08:00→18:00)
[2023-03-31] MEDS: metoprolol succinate 25mg (24-HOUR) SR. Tablet PO SCH (08:00)
[2023-03-31] MEDS: K and/or MAG REPLACEMENT MC SCH ×2 (08:00→20:56)
[2023-03-31] MEDS: docusate sod 100mg capsule PO SCH ×2 (08:00→20:00)
[2023-03-31] MEDS: heparin, porcine 5000 units/ml vial SQ SCH ×2 (08:00→20:27)
[2023-03-31] MEDS: aspirin 81mg, enteric-coated 1 TAB TABLET.DR PO SCH (08:05)
[2023-03-31] MEDS: busPIRone 5mg tablet PO SCH ×2 (08:05→20:27)
[2023-03-31] MEDS: colchicine 0.6mg tablet PO SCH ×2 (08:06→20:28)
[2023-03-31 11:00] VITALS: BP 84/69; PULSE 76; RESP 16; TEMP 97.8; O2SAT 95
[2023-03-31] MEDS ORDERED: normal saline 1000ml 1,000 ML IV SCH (11:40)
[2023-03-31 14:12] LABS: ANISOCYTOSIS 3+; HYPOCHROMASIA 1+; PLATELET ESTIMATE NORMAL; POIKILOCYTOSIS 1+
[2023-03-31 15:00] VITALS: BP 88/74; PULSE 72; RESP 17; TEMP 97.8; O2SAT 96
[2023-03-31 18:00] VITALS: BP 97/75; PULSE 108; RESP 20; TEMP 97.2; O2SAT 100
--- NOTE | 2023-03-31 18:12 | NUR ---
Patient continues with c/o feeling like he has a bug UA was contaminated will send new one out LUISA. Fluids ran for 4 hours and tolerated well. No c/o pain. blood sugar 219 all insulin held related to not eating and emesis x4. Unable to hold any food down. Patient currently on tele. in bed. All safety measures in plac and call light in reach. will continue to monitor.
--- NOTE | 2023-03-31 18:30 | NUR ---
patient insulin held r/t nausea and vomiting unable to hold anything down. MD notified.
[2023-03-31 19:00] LABS: BILIRUBIN,URINE MODERATE (Neg); CLARITY,URINE SLIGHTLY CLOUDY (Clear); COLOR,URINE YELLOW (Yellow); GLUCOSE, URINE NEGATIVE (Neg); KETONES,URINE NEGATIVE (Neg); LEUKOCYTE ESTERASE ,URINE NEGATIVE (Neg); NITRITES, URINE NEGATIVE (Neg); OCCULT BLOOD,URINE NEGATIVE (Neg); PH,URINE 5.5 (4.8-8.0); PROTEIN,URINE TRACE mg/dl (Neg); UROBILINOGEN,URINE 0.2 E.U/dL (0.2-1.0)
[2023-03-31 19:08] LABS: UA COLLECTION TYPE NON-SPECIFIED; WBC,URINE 0-4 /HPF (0-4)
[2023-03-31 19:09] LABS: BACTERIA,URINE FEW /HPF (Neg); RBC,URINE 0-2 /HPF (0-2); SQUAMOUS EPITHELIAL CELL,UR FEW /LPF (FEW)
[2023-03-31 19:15] LABS: CREATININE,URINE RANDOM 160.3 MG/DL; TOTAL PROTEIN,URINE RANDOM 76.6 MG/DL
--- NOTE | 2023-03-31 19:31 | NUR ---
Patient in room PCU 3012. I have received report from JEAN CLAUDE BERMUDEZ and had the opportunity to ask questions and assume patient care.
[2023-03-31] MEDS: sacubitril/valsartan 24mg-26mg tablet PO SCH (20:00)
[2023-03-31 20:03] LABS: UA EOSINOPHILS NO EOS /HPF
[2023-03-31] MEDS: ondansetron/PF 4mg/2ml inj IV PRN (20:24)
[2023-03-31] MEDS: atorvastatin 10mg tablet PO SCH (20:27)
[2023-03-31] MEDS: LORazepam 0.5 MG tablet PO PRN (20:28)
[2023-03-31] MEDS: OLANZAPINE 5 MG TABLET PO SCH (20:28)
[2023-03-31] MEDS: insulin Lispro (HumaLOG) vial - multi-dose SQ SCH (20:40)
[2023-03-31 20:42] LABS: BASOPHILS % (AUTO) 1.6 % (0-1); EOSINOPHILS % (AUTO) 0.6 % (0-6); HEMOGLOBIN 11.2 g/dl (14.0-17.9); LYMPHOCYTES # (AUTO) 0.2 X10'3 (1.1-4.8); LYMPHOCYTES % (AUTO) 4.8 % (21-51); MEAN CORPUSCULAR HEMOGLOBIN 25.2 PG (27.0-31.0); MEAN CORPUSCULAR HGB CONC 31.1 g/dL (33.0-36.5); MEAN CORPUSCULAR VOLUME 81.3 FL (78-98); MEAN PLATELET VOLUME 9.5 FL (7.4-10.4); MONOCYTES # (AUTO) 0.2 X10'3 (0-0.9); MONOCYTES % (AUTO) 5.3 % (2-12); NEUTROPHILS # (AUTO) 2.8 X10'3 (1.8-7.7); NEUTROPHILS % (AUTO) 87.7 % (42-75); PLATELET COUNT 173 X10'3 (140-440); RED BLOOD COUNT 4.43 X10'6 (4.70-6.10); RED CELL DISTRIBUTION WIDTH 26.5 % (11.5-14.5); WHITE BLOOD COUNT 3.1 X10'3 (4.5-11.0)
[2023-03-31 20:59] LABS: ALANINE AMINOTRANSFERASE 78 U/L (12-78); ALBUMIN 2.6 G/DL (3.4-5.0); ALBUMIN/GLOBULIN RATIO 0.6 (1.1-1.5); ALKALINE PHOSPHATASE 95 IU/L (46-116); ANION GAP 15 (8-16); ASPARTATE AMINO TRANSFERASE 72 U/L (10-37); BILIRUBIN,TOTAL 2.9 MG/DL (0.1-1.0); BLOOD UREA NITROGEN 102 MG/DL (7-18); BUN/CREATININE RATIO 33.3 (10.0-20.0); CALCIUM 8.6 MG/DL (8.5-10.1); CHLORIDE 92 MMOL/L (99-107); CREATININE 3.06 MG/DL (0.60-1.10); GLUCOSE 243 MG/DL (70-104); POTASSIUM 5.2 MMOL/L (3.5-5.1); SODIUM 126 MMOL/L (135-145); TOTAL CARBON DIOXIDE 19.2 MMOL/L (24-32); TOTAL PROTEIN 7.2 G/DL (6.4-8.2); eCRCL 25 ML/MIN; eGFR 26 ML/MIN
[2023-03-31 22:00] VITALS: BP 95/69; PULSE 112; RESP 26; TEMP 97.7; O2SAT 100
[2023-03-31 22:14] LABS: ANISOCYTOSIS 3+; HYPOCHROMASIA 1+; PLATELET ESTIMATE NORMAL; TEAR DROP CELLS FEW
[2023-03-31 22:15] LABS: ELLIPTOCYTES FEW; POLYCHROMASIA 1+; SCHISTOCYTES FEW; TARGET CELLS FEW
[2023-03-31 22:16] LABS: LARGE PLATELETS FEW
[2023-04-01] VITALS (13 sets, daily range): BP systolic 89–118; BP diastolic 62–88; PULSE 91–101; RESP 13–22; TEMP 97.2–98.3; O2SAT 93–100
[2023-04-01] MEDS: LORazepam 0.5 MG tablet PO PRN (03:07)
--- NOTE | 2023-04-01 06:43 | NUR ---
Problems reprioritized. Patient report given, questions answered & plan of care reviewed with ANGELA WOLFE.
[2023-04-01] MEDS: heparin, porcine 5000 units/ml vial SQ SCH ×2 (08:00→21:07)
[2023-04-01] MEDS: sacubitril/valsartan 24mg-26mg tablet PO SCH ×2 (08:00→20:00)
[2023-04-01] MEDS: metoprolol succinate 25mg (24-HOUR) SR. Tablet PO SCH (08:00)
[2023-04-01] MEDS: docusate sod 100mg capsule PO SCH ×2 (08:00→21:06)
[2023-04-01] MEDS: K and/or MAG REPLACEMENT MC SCH ×2 (08:02→20:00)
--- NOTE | 2023-04-01 08:04 | NUR ---
Medications held for SBP < 100 Per protocol. Metoprol and Entresto
[2023-04-01 08:15] LABS: HEMOGLOBIN 10.9 g/dl (14.0-17.9); MONOCYTES # (AUTO) 0.1 X10'3 (0-0.9)
[2023-04-01] MEDS: LACTOSE-REDUCED FOOD 237ML LIQUID PO SCH ×4 (08:16→19:00)
[2023-04-01] MEDS: aspirin 81mg, enteric-coated 1 TAB TABLET.DR PO SCH (08:18)
[2023-04-01] MEDS: busPIRone 5mg tablet PO SCH ×2 (08:19→21:05)
[2023-04-01 08:20] LABS: BASOPHILS % (AUTO) 0.5 % (0-1); EOSINOPHILS % (AUTO) 0.1 % (0-6); HEMATOCRIT 34.4 % (42.0-52.0); LYMPHOCYTES # (AUTO) 0.2 X10'3 (1.1-4.8); LYMPHOCYTES % (AUTO) 9.2 % (21-51); MEAN CORPUSCULAR HEMOGLOBIN 25.8 PG (27.0-31.0); MEAN CORPUSCULAR HGB CONC 31.6 g/dL (33.0-36.5); MEAN CORPUSCULAR VOLUME 81.7 FL (78-98); MEAN PLATELET VOLUME 9.3 FL (7.4-10.4); MONOCYTES % (AUTO) 4.7 % (2-12); NEUTROPHILS # (AUTO) 2.2 X10'3 (1.8-7.7); NEUTROPHILS % (AUTO) 85.5 % (42-75); PLATELET COUNT 161 X10'3 (140-440); RED BLOOD COUNT 4.21 X10'6 (4.70-6.10); RED CELL DISTRIBUTION WIDTH 26.1 % (11.5-14.5); WHITE BLOOD COUNT 2.6 X10'3 (4.5-11.0)
[2023-04-01 08:57] LABS: ALANINE AMINOTRANSFERASE 79 U/L (12-78); ALBUMIN 2.6 G/DL (3.4-5.0); ALBUMIN/GLOBULIN RATIO 0.6 (1.1-1.5); ALKALINE PHOSPHATASE 98 IU/L (46-116); ANION GAP 18 (8-16); ASPARTATE AMINO TRANSFERASE 68 U/L (10-37); BILIRUBIN,TOTAL 3.6 MG/DL (0.1-1.0); BLOOD UREA NITROGEN 113 MG/DL (7-18); BUN/CREATININE RATIO 32.8 (10.0-20.0); CALCIUM 8.7 MG/DL (8.5-10.1); CHLORIDE 91 MMOL/L (99-107); CREATININE 3.45 MG/DL (0.60-1.10); GLUCOSE 173 MG/DL (70-104); POTASSIUM 5.3 MMOL/L (3.5-5.1); SODIUM 126 MMOL/L (135-145); TOTAL CARBON DIOXIDE 16.9 MMOL/L (24-32); TOTAL PROTEIN 7.2 G/DL (6.4-8.2); eCRCL 22 ML/MIN; eGFR 22 ML/MIN
[2023-04-01 11:10] LABS: ANISOCYTOSIS 3+; NUCLEATED RED BLOOD CELLS 2 /100WBC (0-0); PLATELET ESTIMATE NORMAL; TOTAL CELLS COUNTED 100
[2023-04-01 11:11] LABS: HYPOCHROMASIA 1+; POLYCHROMASIA 1+; ROULEAUX 1+; SMUDGE CELLS FEW
[2023-04-01 11:12] LABS: BURR CELLS FEW; ELLIPTOCYTES FEW; SCHISTOCYTES FEW
[2023-04-01 12:59] LABS: URINE AMPHETAMINE SCREEN NEGATIVE (Neg); URINE BARBITUATE SCREEN NEGATIVE (Neg); URINE BENZODIAZEPINES SCREEN NEGATIVE (Neg); URINE CANNABINOID SCREEN NEGATIVE (Neg); URINE COCAINE SCREEN NEGATIVE (Neg); URINE METHADONE SCREEN NEGATIVE (Neg); URINE OPIATE SCREEN NEGATIVE (Neg); URINE PHENCYCLIDINE SCREEN NEGATIVE (Neg)
[2023-04-01] MEDS ORDERED: DOBUTamine-DoBUTrex 500mg/D5W 250 ML IV SCH (15:40)
[2023-04-01] MEDS: colchicine 0.6mg tablet PO SCH ×2 (17:07→21:05)
[2023-04-01] MEDS ORDERED: sodium bicarbonate 650mg tablet PO SCH (21:00)
[2023-04-01] MEDS: atorvastatin 10mg tablet PO SCH (21:05)
[2023-04-01] MEDS: OLANZAPINE 5 MG TABLET PO SCH (21:06)
[2023-04-02] VITALS (19 sets, daily range): BP systolic 54–110; BP diastolic 32–83; PULSE 93–105; RESP 18–27; TEMP 97.3; O2SAT 60–100
[2023-04-02] MEDS: LORazepam 0.5 MG tablet PO PRN (05:44)
[2023-04-02] MEDS: acetaminophen 325mg tablet PO PRN ×2 (05:44→12:49)
[2023-04-02] MEDS: aspirin 81mg, enteric-coated 1 TAB TABLET.DR PO SCH (08:00)
[2023-04-02] MEDS: busPIRone 5mg tablet PO SCH (08:00)
[2023-04-02] MEDS: docusate sod 100mg capsule PO SCH (08:00)
[2023-04-02] MEDS ORDERED: epiNEPHrine 0.1mg/ml 10ml syringe ONE (08:00)
[2023-04-02] MEDS: metoprolol succinate 25mg (24-HOUR) SR. Tablet PO SCH (08:00)
[2023-04-02] MEDS: colchicine 0.6mg tablet PO SCH (08:00)
--- NOTE | 2023-04-02 08:30 | NUR ---
Entered pt's room to find him naked and up out of the bed confused. I kept asking pt what he needed. I finally determined he wanted on the bedside commode. I placed him on the commode with help and pt immediately became unresponsive. Unable to find a pulse and pt not breathing. Eyes rolled back in head. got pt back on bed and immediately started cpr and called a code blue. crash cart at bedside and placed pads on pt while continuing cpr. Code team arrived at 0834. RT started bagging pt and medications started per md at bedside. cpr stopped at approximately 0836. spiral spring winder determined that pt needed intubation. Dr. Leblanc, hospitalist, at bedside. Pt intubated at approximately 0845 by spiral spring winder. transferred pt to icu immediately after. Report given to Albino ULTRASOUND TECHNOL at bedside in ICU at approximately 0900. All questions answered. Albino ULTRASOUND TECHNOL taking over pt care.
[2023-04-02 09:30] LABS: ALANINE AMINOTRANSFERASE 85 U/L (12-78); ALBUMIN 2.5 G/DL (3.4-5.0); ALKALINE PHOSPHATASE 147 IU/L (46-116); ANION GAP 24 (8-16); ASPARTATE AMINO TRANSFERASE 115 U/L (10-37); BILIRUBIN,TOTAL 5.4 MG/DL (0.1-1.0); BLOOD UREA NITROGEN 138 MG/DL (7-18); BUN/CREATININE RATIO 30.4 (10.0-20.0); CALCIUM 7.8 MG/DL (8.5-10.1); CHLORIDE 90 MMOL/L (99-107); CREATININE 4.54 MG/DL (0.60-1.10); GLUCOSE 213 MG/DL (70-104); POTASSIUM 5.7 MMOL/L (3.5-5.1); SODIUM 128 MMOL/L (135-145); eCRCL 17 ML/MIN; eGFR 16 ML/MIN
[2023-04-02] MEDS ORDERED: NORepinephrine 8mg/ 250ml NS 250 ML IV ONE ×2 (09:33→14:02)
[2023-04-02 09:36] LABS: TOTAL CARBON DIOXIDE 14.4 MMOL/L (24-32)
[2023-04-02 09:50] LABS: ALBUMIN/GLOBULIN RATIO 0.6 (1.1-1.5)
[2023-04-02 10:00] LABS: ABG BASE EXCESS -22.4 mmol/L (-2.0-2.0); ABG HCO3 8.5 mmol/L (22.0-26.0); ABG OXYGEN SATURATION 99.7 % (94-97); ABG PCO2 (T) 37.5 mmHg (35.0-48.0); ABG PH (T) 6.974 (7.340-7.440); ABG PO2 (T) 477.6 mmHg (75.0-100.0); FCOHb 0.7 % (0.0-3.9); FHHb 0.3 % (0.0-5.0); FMetHb 0.2 % (0.0-1.5); FO2Hb 98.8 % (94-97); MODE VENT - AC/PRVC; PEEP 5 cm H2O; RESPIRATORY RATE 18 b/min; TIDAL VOLUME 400 mL; TOTAL HEMOGLOBIN 12.1 G/dl (14.0-17.9)
[2023-04-02] MEDS ORDERED: SODIUM BICARB 150mEq/D5W 1L 1,000 ML IV SCH (10:25)
[2023-04-02] MEDS ORDERED: sodium bicarbonate 1meq/ml inj 150 ML in dextrose 5%-water 1,000 ML IV SCH (10:34)
--- NOTE | 2023-04-02 10:36 | NUR ---
Reassessment: Pt intubated s/p code blue this morning. Prior pt was eating poorly, documented with average 17% PO intake of meals since 03/30 with 0% PO intake of ONS since dinner 03/30. Per BOX TOE CUTTER documentation pt has been unable to keep any food down secondary to N/V. Per physician progress note pt was very somnolent 04/01. Recommend initiating nutrition support as soon as possible once access is achieved. Pt would benefit from NGT placement so pt can receive supplemental EN following extubation given poor PO intake since admit. LBM 04/01 per I&O. Will continue to follow closely. Recommendations: 1) IF TF, continuous Pivot 1.5 with 55 mL/hr goal rate. Begin at 25 mL/hr and advance by 30 mL Q8H as tolerated. Once at goal to provide 1320 mL total volume/day, 1980 kcal, 124 g protein, and 990 mL water 2) IF TF, additional water per physician given renal status and hyponatremia; monitor serum Na 3) IF TF, prealbumin q Tuesday/ 4) Daily scaled weights 5) Routine bowel care 6) Advance to regular diet as medically indicated following extubation given poor PO intake since admit; strawberry smoothie and strawberry Ensure Enlive TID with diet advancement if pt accepting of PO intake 7) NGT placement for supplemental EN following extubation given poor PO intake since admit Addendum: 04/02/23 at [address] Amended: Links added.
[2023-04-02 10:42] LABS: MEAN PLATELET VOLUME 9.2 FL (7.4-10.4); WHITE BLOOD COUNT 1.1 X10'3 (4.5-11.0)
[2023-04-02 10:44] LABS: HEMATOCRIT 35.2 % (42.0-52.0); HEMOGLOBIN 10.9 g/dl (14.0-17.9); MEAN CORPUSCULAR HEMOGLOBIN 25.7 PG (27.0-31.0); MEAN CORPUSCULAR HGB CONC 30.9 g/dL (33.0-36.5); MEAN CORPUSCULAR VOLUME 83.3 FL (78-98); PLATELET COUNT 142 X10'3 (140-440); RED BLOOD COUNT 4.22 X10'6 (4.70-6.10); RED CELL DISTRIBUTION WIDTH 25.8 % (11.5-14.5)
[2023-04-02 11:13] LABS: ANISOCYTOSIS 3+; ELLIPTOCYTES FEW; HYPOCHROMASIA 1+; NUCLEATED RED BLOOD CELLS 16 /100WBC (0-0); PLATELET ESTIMATE DECREASED; POLYCHROMASIA 1+; TOTAL CELLS COUNTED 100
[2023-04-02 11:14] LABS: ROULEAUX 1+; SCHISTOCYTES FEW; SMUDGE CELLS FEW
[2023-04-02] MEDS ORDERED: piperacillin/tazo 3.375gm/50ml 50 ML IV ONE (11:25)
[2023-04-02] MEDS ORDERED: VANCOmycin 1250MG/NS 250ml Bag 250 ML IV ONE (12:00)
[2023-04-02] MEDS ORDERED: vancomycin/NS 1 GM ADD-VANTAGE 250 ML IV PRN (12:00)
[2023-04-02] MEDS ORDERED: VANCOMYCIN 1,500MG in normal saline IV soln 300 ML IV ONE (13:00)
[2023-04-02] MEDS ORDERED: vasopressin inj. 40 UNIT in normal saline 50ml IV soln 38 ML IV SCH (13:40)
[2023-04-02] MEDS ORDERED: NORepinephrine 8mg/ 250ml NS 250 ML IV SCH (14:05)
[2023-04-02] MEDS: LACTOSE-REDUCED FOOD 237ML LIQUID PO SCH (14:13)
[2023-04-02] MEDS ORDERED: albumin (Human) 5% 250ml 250 ML IV ONE (15:01)
[2023-04-02] MEDS ORDERED: albumin (human) 25% 100ml IV 400 ML IV ONE (15:01)
--- NOTE | 2023-04-02 15:20 | NUR ---
Family. Family met with MD's (Ramandeep) at bedside. Pts conditions explained, questions answered, additional information from his children provided. With the explanations given, family decided to make pt DNR. There were about 6 kids to see pt. Pts condition requiring max on vasopressin and levophed. The "mother of his 4 oldest kids" to see pt also. Daughter okayed her being here and getting info. Dr. Leblanc to see pt again.
[2023-04-02 15:46] LABS: ABG BASE EXCESS -19.6 mmol/L (-2.0-2.0); ABG OXYGEN SATURATION 99.5 % (94-97); ABG PCO2 (T) 30.9 mmHg (35.0-48.0); ABG PH (T) 7.084 (7.340-7.440); ABG PO2 (T) 184.3 mmHg (75.0-100.0); FCOHb 0.8 % (0.0-3.9); FHHb 0.5 % (0.0-5.0); FMetHb 0.1 % (0.0-1.5); FO2Hb 98.6 % (94-97); MODE VENT - AC/PRVC; PEEP 5 cm H2O; RESPIRATORY RATE 18 b/min; TIDAL VOLUME 400 mL; TOTAL HEMOGLOBIN 11.5 G/dl (14.0-17.9)
[2023-04-02] MEDS ORDERED: piperacillin/tazo 3.375gm/50ml 50 ML IV SCH (16:00)
[2023-04-02] MEDS ORDERED: cefepime 1GM/NS ADD-VANTAGE 100 ML IV SCH (16:00)
[2023-04-02] MEDS ORDERED: hydrocortisone sod succ/PF 100mg/2ml inj. IV SCH (16:10)
--- NOTE | 2023-04-02 16:39 | NUR ---
Update Pts BP was decreasing in spite of max vasoactive med. Dr. Ayala notified of change in condition. He spoke with daughter who agreed to comfort measure after talking with the other family members. Brother came as art line had final pulses. Family at bedside awaiting one more family member. Dr. Ayala notified of pts demise and pending additional family coming.
[2023-04-02] MEDS ORDERED: NORepinephrine 32 MG in Normal Saline 250ml IV soln IV SCH (17:00)
--- NOTE | 2023-04-02 18:05 | NUR ---
RN IS TO DOCUMENT YES TO ALL APPLICABLE AREAS Pronouncement of : Albino Jeter 1. Time Physician Notified: 1800 2. Date of : 04/02/2023 3. Time of : 1730 4. DNR/Withdraw life support documented: Yes 5. Monitor strip has been placed on chart: Yes 6. Assessment process is of one-minute duration and includes following criteria: a) Patient is unresponsive to all stimuli: Yes b) Pupils fixed and non-reactive: Yes c) Auscultation of precordium reveals absence of heart tones: Yes d) Auscultation of lungs reveals absence of breath sounds: Yes e) Absence of blood pressure / all vital signs: Yes (pt had arterial line with flat line) f) QRS complexes are not present on monitor / EKG strip: Yes (pt with AICD) g) Pacer spikes without capture: Yes (see strip) 4. Comments: Dr. Ayala notified of pt passing and Donor network notified. Family allowed to remain in room as long as they needed. one other sister came to bedside before they all left. Donor network returned our call and this pt will not be a candidate.
[2023-04-03] MEDS ORDERED: VANCOMYCIN LEVEL IV SCH (03:00)
== END 2023-04-02 18:52 | DRG 208 ==
LOC: ER 15:13 → ED HOLD 19:11 → PCU 3S 21:15 → CICU 2S 04-02 09:01
PROVIDERS: ADMIT Internal Medicine; ATTEND Internal Medicine
PROC: 04HY32Z Insertion of Monitoring Device into Lower Artery, Percutaneous Approach (ICD-10-PCS; principal; 2023-04-02)
PROC: 5A1935Z Respiratory Ventilation, Less than 24 Consecutive Hours (ICD-10-PCS; 2023-04-02)
PROC: 02HV33Z Insertion of Infusion Device into Superior Vena Cava, Percutaneous Approach (ICD-10-PCS; 2023-04-02)
PROC: B548ZZA Ultrasonography of Superior Vena Cava, Guidance (ICD-10-PCS; 2023-04-02)
PROC: 0CJS8ZZ Inspection of Larynx, Via Natural or Artificial Opening Endoscopic (ICD-10-PCS; 2023-04-02)
PROC: 0BH17EZ Insertion of Endotracheal Airway into Trachea, Via Natural or Artificial Opening (ICD-10-PCS; 2023-04-02)
PROC: 5A12012 Performance of Cardiac Output, Single, Manual (ICD-10-PCS; 2023-04-02)
DX: J96.01 Acute respiratory failure with hypoxia (principal); A41.9 Sepsis, unspecified organism; R65.21 Severe sepsis with septic shock; I50.23 Acute on chronic systolic (congestive) heart failure; N18.6 End stage renal disease; I13.2 Hypertensive heart and chronic kidney disease with heart failure and with stage 5 chronic kidney disease, or end stage renal disease; N17.9 Acute kidney failure, unspecified; E87.1 Hypo-osmolality and hyponatremia; E87.20 Acidosis, unspecified; I42.0 Dilated cardiomyopathy; E11.22 Type 2 diabetes mellitus with diabetic chronic kidney disease; E87.5 Hyperkalemia; I95.9 Hypotension, unspecified; I46.9 Cardiac arrest, cause unspecified; E88.09 Other disorders of plasma-protein metabolism, not elsewhere classified; E78.5 Hyperlipidemia, unspecified; D70.9 Neutropenia, unspecified; F17.200 Nicotine dependence, unspecified, uncomplicated; F15.90 Other stimulant use, unspecified, uncomplicated; I25.10 Atherosclerotic heart disease of native coronary artery without angina pectoris; M10.9 Gout, unspecified; Z99.2 Dependence on renal dialysis; Z95.810 Presence of automatic (implantable) cardiac defibrillator; Z79.899 Other long term (current) drug therapy; Z88.5 Allergy status to narcotic agent
CPT/HCPCS: 36415; 36600; 71045; 74018; 76770; 80053; 80305; 81001; 82570; 82803; 82948; 83036; 83605; 83735; 83880; 84100; 84145; 84156; 84300; 84484; 84550; 85007; 85008; 85018; 85025; 87040; 87070; 87081; 87207; 87502; 87503; 87811; 92950; 93005; 93306; 94002; 94760; 94799; 97116; 97161; 97530; 99285; A4615; A6258; A6449; C1758; G0378; J0171; J0696; J1250; J1644; J1815; J1940; J2405; J3370; J3490; J7030; J7040; J7070; P9045; P9047